=== PATIENT | female | born 1970 | race Caucasian/White ===

== ENCOUNTER 2025-01-30 03:54 | Emergency (ER) | payer MEDICAID, SELFPAY ==
[2025-01-30 03:57] VITALS: BP 159/92; PULSE 85; RESP 18; TEMP 36.9; O2SAT 99
[2025-01-30 03:58] VITALS: BMI 22.6
--- NOTE | 2025-01-30 04:03 | PD.EDRME ---
Rapid Medical Screening Exam RME Arrival date/time: 01/30/25 03:54 Chief Complaint: Abdominal Pain Vital signs: Vital Signs Temperature 98.4 F 01/30/25 03:57 Pulse Rate 85 01/30/25 03:57 Respiratory Rate 18 01/30/25 03:57 Blood Pressure 159/92 H 01/30/25 03:57 Pulse Oximetry (%) 99 01/30/25 03:57 Oxygen Delivery Method Room Air 01/30/25 03:57 Vital signs reviewed by provider: Yes RME Narrative: 54-year-old female with chronic abdominal pain presenting to the emergency department by ambulance with bilateral upper and lower abdominal pain since 5 PM. There is no radiation. There is associated nausea. No chest pain or shortness of breath. Exam: Lungs are clear bilaterally. Abdomen soft nontender nondistended, no rebound. No Weir sign. No CVA tenderness. Patient is awake alert, awake, not diaphoretic. Clinical Impression: Bilateral upper abdominal pain. Labs, EKG chest x-ray, will be ordered. A emergency department provider will see this patient and do a final disposition.
--- NOTE | 2025-01-30 04:05 | EKG_ITS ---
[facility] Test Date: 2025-01-30 Pat Name: FER VARELA Department: Room: - Gender: Female [employer]: : 1970 Requested By: Aissatou Nguyen Order Number: [id number] Reading MD: Aissatou Nguyen Measurements Intervals [place] Rate: 80 P: 52 CA: 141 QRS: 64 QRSD: 102 T: 66 QT: 404 QTc: 469 Interpretive Statements SINUS RHYTHM POSSIBLE LEFT ATRIAL ENLARGEMENT [-0.1mV P-WAVE IN V1/V2] MODERATE ST DEPRESSION [0.05+ mV ST DEPRESSION] No previous ECG available for comparison /[id number]/[email or web address]/[id number].pdf
[2025-01-30] MEDS: ONDANSETRON ODT 4 MG TABRAP PO (04:11)
[2025-01-30 04:50] LABS: Basophils # (Auto) 0.0 Thou/mm3 (0.0-0.2); Basophils % (Auto) 0 % (0-2.5); Eosinophils # (Auto) 0.2 Thou/mm3 (0.0-0.5); Eosinophils % (Auto) 2 % (0-10); Hematocrit 41.1 % (36.0-46.0); Hemoglobin 14.0 g/dL (12.0-16.0); Immature Granulocytes Auto 0.02 Thou/mm3 (0.00-0.00); Lymphocytes # (Auto) 1.5 Thou/mm3 (1.0-4.8); Lymphocytes % (Auto) 18 % (10-50); Mean Corpuscular HGB Conc 34.1 g/dl (31.0-37.0); Mean Corpuscular Hemoglobin 31.7 pg (25.0-35.0); Mean Corpuscular Volume 93 fL (80-100); Monocytes # (Auto) 0.6 Thou/mm3 (0.0-0.8); Monocytes % (Auto) 8 % (0-12); Neutrophils # (Auto) 5.8 Thou/mm3 (1.8-7.7); Neutrophils % (Auto) 72 % (37-80); Nucleated Red Blood Cell # 0.00 Thou/mm3 (0.00-0.00); Nucleated Red Blood Cell % 0 /100 WBC (0); Platelet Count 288 Thou/mm3 (140-440); RDW Standard Deviation 40.2 fL (36.4-46.3); Red Blood Count 4.42 Miln/mm3 (4.00-5.20); White Blood Count 8.1 Thou/mm3 (3.6-11.0)
[2025-01-30 05:11] LABS: Troponin I < 0.020 ng/mL (0.0-0.045)
[2025-01-30 05:45] LABS: Alanine Aminotransferase 11 U/L (10-49); Albumin, Serum 4.4 gm/dL (3.5-5.0); Alkaline Phosphatase 119 U/L (46-116); Anion Gap 8 (7-16); Aspartate Amino Transferase 18 U/L (0-34); BUN/Creatinine Ratio 10 Ratio (12-20); Bilirubin,Total 0.4 mg/dL (0.3-1.2); Blood Urea Nitrogen 8 mg/dL (9-23); Calcium 9.1 mg/dL (8.3-10.6); Calcium (Corrected) 9.1 mg/dL (8.5-10.1); Carbon Dioxide 27.4 mMol/L (20.0-31.0); Chloride 105 mMol/L (98-107); Creatinine (Component) 0.8 mg/dL (0.6-1.3); Estimated Creatinine Clearance 73.5 mL/min (>60); Glucose 109 mg/dL (74-106); Lipase 31 U/L (12-53); Osmolality,Calculated 278 (275-295); Potassium 4.0 mMol/L (3.4-5.1); Sodium 140 mMol/L (136-145); eGFR > 60 See Note
--- NOTE | 2025-01-30 08:49 | XR_ITS ---
EXAMINATION: Abdominal series 3 views including upright PA chest TECHNIQUE: Upright PA chest, AP upright AP supine abdomen total 3 views Date and time: January 30, 2025, 0909 hours INDICATIONS: Abdominal pain today FINDINGS: Normal heart size Lungs are clear. Moderate stool throughout the colon No obstruction No free air IMPRESSION: Nonobstructive bowel gas pattern
[2025-01-30] MEDS: KETOROLAC INJ 30 MG/ML VIAL IM (09:04)
[2025-01-30 09:21] LABS: Collection Type, Urine Clean Catch
[2025-01-30 09:41] LABS: Bacteria,Urine Rare; Bilirubin,Urine Negative (Negative); Blood,Urine Negative (Negative); Clarity,Urine Turbid (Clear/Hazy); Color,Urine Lt-Yellow (Lt Yel-Yel); Glucose, Urine Negative (Negative); Ketones,Urine 1+ (Negative); Leukocyte Esterase,Urine Negative (Negative); Nitrite,Urine Positive (Negative); PH,Urine 7.0 (5.0-7.0); Protein,Urine Negative (Neg - Trace); RBC,Urine 1 /hpf (0-3); Specific Gravity,Urine 1.020 (1.001-1.035); Squamous Epithelial Cell,Urine < 1 /hpf (0-5); Urobilinogen,Urine Negative mg/dL (0.0-1.0); WBC,Urine 1 /hpf (0-5)
[2025-01-30 09:50] LABS: Culture Indicated,Urine Yes
[2025-01-30 10:04] VITALS: BP 139/94; PULSE 80; RESP 16; TEMP 36.9; O2SAT 100
--- NOTE | 2025-01-30 10:52 | EDNOTE_ITS ---
ED Abdominal Pain RME/HPI General Chief Complaint: Abdominal Pain Stated complaint: ABD PAIN Time seen by provider: 01/30/25 04:04 Arrival date/time: 01/30/25 03:54 RME / HPI RME / HPI narrative: 54-year-old female with chronic abdominal pain presenting to the emergency department by ambulance with bilateral upper and lower abdominal pain since 5 PM. There is no radiation. There is associated nausea. No chest pain or shortness of breath. DR. MEI MAIN ED EVALUATION 54 year old female with no stated medical history presents to the ED for evaluation of abdominal pain beginning yesterday evening (5-6pm) and remaining constant since. Described as aching in sensation that is located most to the right upper and epigastric regions with radiation around to her back, rating as moderate. Accompanied by nausea and vomiting. States the pain began before eating dinner and has not had anything to eat since yesterday afternoon. Denies fevers, chills, sweats. Denies chest pain, cough, shortness of breath. Denies diarrhea, constipation, or urinary symptoms. Patient mentioned she has experienced similar abdominal pain intermittently over several months and has yet to consult with PCP. Exam: Lungs are clear bilaterally. Abdomen soft nontender nondistended, no rebound. No Weir sign. No CVA tenderness. Patient is awake alert, awake, not diaphoretic. Impression: Bilateral upper abdominal pain. Labs, EKG chest x-ray, will be ordered. A emergency department provider will see this patient and do a final disposition. Related Data Allergies Allergy/AdvReac Type Severity Reaction Status Date / Time No Known Allergies Allergy Verified 01/30/25 04:01 Review of Systems Review of Systems Systems Reviewed: All systems reviewed, normal except as documented Past Medical History Past Medical History CARDIAC: Negative Congestive Heart Failure RESPIRATORY: Negative Chronic Obstructive Pulmonary Disease (COPD) GENITOURINARY: Negative Renal Disease ENDOCRINE: Negative Diabetes Mellitus Type 1 or Diabetes Mellitus Type 2 Social History SMOKING STATUS: Former smoker ED Exam Narrative Physical exam: GENERAL APPEARANCE: alert and oriented x 4, well-developed, well-nourished, no acute distress HEENT: Normocephalic, atraumatic; pupils equal, round, reactive to light; EOMI; mucous membranes pink, moist; oropharynx clear NECK: Supple LUNGS: CTABL; no wheezes, no rales, no rhonchi HEART: Regular rate, regular rhythm; normal S1, S2; no murmurs ABDOMEN: moderately distended; active BS; soft, no tenderness, no guarding, no rebound; no masses, no organomegaly, no hernia BACK: no CVA tenderness EXTREMITIES: atraumatic; no edema NEUROLOGIC: awake; alert and oriented x4; cranial nerves II-XII grossly intact; no focal sensory or motor deficits PSYCHIATRIC: appropriate mood and affect SKIN: warm, dry, normal color; no rashes Course Quality Measures none Orders Category Date Time Status CT Screening NOW Care 01/30/25 12:11 Active EKG (ED ONLY) *Do not use* NOW Care 01/30/25 04:[address] abdomen pelvis w con Stat Exams 01/30/25 12:11 Completed EKG (ED Only) Stat Exams 01/30/25 04:05 Draft US abdomen limited Stat Exams 01/30/25 13:54 Completed XR abdomen series w chest 1V Stat Exams 01/30/25 08:49 Completed CBC Stat Lab 01/30/25 04:20 Completed CMP [Comprehensive Metabolic Panel] Stat Lab 01/30/25 04:20 Completed Lipase Stat Lab 01/30/25 04:20 Completed Troponin I Stat Lab 01/30/25 04:20 Completed UA, C/S IF [Urinalysis, C/S if Indicated] Stat Lab 01/30/25 09:07 Completed Urine Culture Stat Lab 01/30/25 09:07 Received Ketorolac Inj [Toradol Inj] Med 01/30/25 08:49 Discontinued 30 mg IM X1 ONE Morphine* Inj Med 01/30/25 12:11 Discontinued 4 mg IVP X1 ONE Ondansetron Inj [Zofran Inj] Med 01/30/25 12:11 Discontinued 4 mg IVP X1 ONE Ondansetron Odt [Zofran Odt] Med 01/30/25 04:05 Discontinued 4 mg PO X1 ONE Sodium Chloride 0.9% 1000 ml [Ns] 1,000 ml Med 01/30/25 12:11 Discontinued IV 999 mls/hr Sodium Chloride 0.9% 1000 ml [Ns] 1,000 ml Med 01/30/25 13:11 Discontinued IV 999 mls/hr Vital Signs Vital signs: Vital Signs Temperature 98.4 F 01/30/25 03:57 Pulse Rate 85 01/30/25 03:57 Respiratory Rate 18 01/30/25 03:57 Blood Pressure 159/92 H 01/30/25 03:57 Pulse Oximetry (%) 99 01/30/25 03:57 Oxygen Delivery Method Room Air 01/30/25 03:57 Pulse ox is 99% on room air which is adequate. Abdominal Pain MDM MDM Narrative MDM Narrative:: Catherine Agosto am scribing for and in the presence of Dr. Mei. Patient remains clinically stable throughout the emergency department visit. We reviewed all the results, analysis, and treatment plans. Patient is amenable to discharge. Strict return precautions were outlined. Patient data External records reviewed:: None (No previous records for review ) Clinical information provided by:: patient Social determinants that could affect healthcare access:: none Patient has the following chronic illnesses:: None reported How is presenting disease/condition affected by chronic disease/condition?: no chronic disease Evaluation data The following diagnostics were reviewed and interpreted by me:: lab results, radiology exam(s) and EKG tracing(s) (EKG @ 04:33AM, normal sinus rhythm, rate 80, no STEMI. ) Lab and/or radiology exams considered but not ordered:: None Interpretation Summary: Ordering Physician: Anne Mei MD Date of Service: 01/30/25 Procedure(s): XR abdomen series w chest 1V Accession Number(s): [id number] cc: Walt Duque MD; NO PRIMARY/FAMILY,PHYSICIAN; Anne Mei MD~ EXAMINATION: Abdominal series 3 views including upright PA chest TECHNIQUE: Upright PA chest, AP upright AP supine abdomen total 3 views Date and time: January 30, 2025, 0909 hours INDICATIONS: Abdominal pain today FINDINGS: Normal heart size Lungs are clear. Moderate stool throughout the colon No obstruction No free air IMPRESSION: Nonobstructive bowel gas pattern Dictated By: Walt Duque MD Signed By: <Electronically signed by Walt Duque MD in OV> 01/30/25 0932 Ordering Physician: Anne Mei MD Date of Service: 01/30/25 Procedure(s): US abdomen limited Accession Number(s): [id number] cc: Walt Duque MD; NO PRIMARY/FAMILY,PHYSICIAN; Anne Mei MD~ Examination: Abdomen sonogram, Limited Date and time of exam: January 30, 2025, 1440 hours INDICATIONS: Onset right upper abdominal pain today Technique: Real-time cooper scale transabdominal sonographic images of the upper abdomen obtained. Findings: Multiple gallstones Gallbladder wall thickening 0.7 cm Common bile duct 0.6 cm Pancreatic head 2.6 cm Liver 12.9 cm no liver lesions Normal hepatopetal portal venous Patent IVC IMPRESSION: Cholelithiasis, thickened gallbladder wall, consider HIDA scan or MRCP follow-up to confirm cholecystitis Dictated By: Walt Duque MD Signed By: <Electronically signed by Walt Duque MD in OV> 01/30/25 1517 Ordering Physician: Anne eMi MD Date of Service: 01/30/25 Procedure(s): CT abdomen pelvis w con Accession Number(s): [id number] cc: Walt Duque MD; NO PRIMARY/FAMILY,PHYSICIAN; Anne Mei MD~ Examination: CT abdomen with intravenous contrast CT pelvis with intravenous contrast 2-D coronal reconstructions 2-D sagittal reconstructions Date and time of exam: January 30, 2025, 1324 hours INDICATIONS: Onset right lower abdominal pain today. CTDI: vol (mGy) 7.05 DLP: (mGycm) 395 Technique: Multiple axial sections of the abdomen and pelvis have been obtained. 64 slice high-resolution scanner used. 3 mm axial sections have been obtained, post intravenous injection 60 cc [id number] 2-D sagittal, coronal reconstructions obtained. Low dose protocols were performed. One or more of the following dose reduction techniques were used; automated exposure control, adjustment of the mA and/or KV according to patient size, use of iterative reconstruction technique. Findings: No focal liver or splenic lesions Gallstones Gallbladder wall appears thickened and edematous No common hepatic or common bile duct stones No pancreatic mass Normal adrenal glands Significant right renal scarring, no hydronephrosis or ureteral calculi Aorta normal size No bowel obstruction Normal appendix No diverticulitis Atrophic uterus Urinary bladder intact Significant osteopenia IMPRESSION: Recommend hepatobiliary sonography to confirm acute calculus cholecystitis Dictated By: Walt Duque MD Signed By: <Electronically signed by Walt Duque MD in OV> 01/30/25 7640 Medications / Prescriptions Medications or Prescriptions considered but not ordered:: none Medication administrations:: Medication Administration History Discontinued Medications Sodium Chloride (Ns) 1,000 mls @ 999 mls/hr IV .Q1H1M ONE Stop: 01/30/25 13:11 Last Infusion: 01/30/25 14:33 Dose: Infused Documented By: Admin: 01/30/25 13:00 Dose: 999 mls/hr Documented By: ALLIE Sodium Chloride (Ns) 1,000 mls @ 999 mls/hr IV .Q1H1M ONE Stop: 01/30/25 14:11 Last Infusion: 01/30/25 15:58 Dose: Infused Documented By: Admin: 01/30/25 14:33 Dose: 999 mls/hr Documented By: DALoren Ketorolac Tromethamine (Ketorolac Inj 30 Mg/Ml Vial) 30 mg IM X1 ONE Stop: 01/30/25 08:50 Last Admin: 01/30/25 09:04 Dose: 30 mg Documented By: VG Morphine Sulfate (Morphine Sulf Inj 4 Mg/Ml Vial) 4 mg IVP X1 ONE Stop: 01/30/25 12:12 Last Admin: 01/30/25 12:59 Dose: 4 mg Documented By: DALoren Ondansetron HCl (Ondansetron Odt 4 Mg Tabrap) 4 mg PO X1 ONE; Protocol Stop: 01/30/25 04:06 Last Admin: 01/30/25 04:11 Dose: 4 mg Documented By: CVL Ondansetron HCl (Ondansetron Inj 2 Mg/Ml Inj 2 Ml) 4 mg IVP X1 ONE Stop: 01/30/25 12:12 Last Admin: 01/30/25 13:00 Dose: 4 mg Documented By: ALLIE See above Consultations Consultation(s) initiated? (list below): No Diagnosis Differential diagnosis abdominal pain: abdominal pain, calculus of kidney, diverticulitis, gastroenteritis and other (choelithiasis) Most likely diagnosis given after review of the tests above:: Biliary colic Gallstones Admission Indicated Admission indicated?: not indicated Explain why admission is indicated or not indicated:: With no condition needing emergent intervention, there was no indication for admission. Admission Request Was there a request for admission?: No Disposition Plan Disposition Plan: Discharge Discharge Attestation Discharge Attestation: The patient and all family members were given an opportunity to ask questions and understood the discharge instructions. Discharge instructions specifically effects, indications for sooner follow up or return to the emergency department, and the expected course of current diagnosis. Patient condition: Stable Discharge Plan Plan Patient Disposition: HOME (Self Care) Prescriptions/Referrals Referrals: No Primary/Family,Physician [Primary Care Provider] - In 1 week Problem List Clinical Impression: Biliary colic, Gallstones Patient/Caregiver Discharge Instructions Education Materials: What Are Gallstones, Treating Gallstones, ED Gallstones with Biliary Colic Print Language: Indonesian Stand Alone Forms: Crystal Award Info., Patient Portal Info Letter
--- NOTE | 2025-01-30 12:11 | XR_ITS ---
Examination: CT abdomen with intravenous contrast CT pelvis with intravenous contrast 2-D coronal reconstructions 2-D sagittal reconstructions Date and time of exam: January 30, 2025, 1324 hours INDICATIONS: Onset right lower abdominal pain today. CTDI: vol (mGy) 7.05 DLP: (mGycm) 395 Technique: Multiple axial sections of the abdomen and pelvis have been obtained. 64 slice high-resolution scanner used. 3 mm axial sections have been obtained, post intravenous injection 60 cc Isovue-[id number] 2-D sagittal, coronal reconstructions obtained. Low dose protocols were performed. One or more of the following dose reduction techniques were used; automated exposure control, adjustment of the mA and/or KV according to patient size, use of iterative reconstruction technique. Findings: No focal liver or splenic lesions Gallstones Gallbladder wall appears thickened and edematous No common hepatic or common bile duct stones No pancreatic mass Normal adrenal glands Significant right renal scarring, no hydronephrosis or ureteral calculi Aorta normal size No bowel obstruction Normal appendix No diverticulitis Atrophic uterus Urinary bladder intact Significant osteopenia IMPRESSION: Recommend hepatobiliary sonography to confirm acute calculus cholecystitis
[2025-01-30] MEDS: MORPHINE SULF INJ 4 MG/ML VIAL IVP (12:59)
[2025-01-30] MEDS: ONDANSETRON INJ 2 MG/ML INJ 2 ML 4 MG IVP (13:00)
[2025-01-30] MEDS: SODIUM CHLORIDE 0.9% 1000 ML 1,000 ML 999 ML IV ×2 (13:00→14:33)
[2025-01-30 13:01] LABS: Albumin/Globulin Ratio 1.3 (1.2-2.2); Globulin 3.4 gm/dL (2.3-3.5); Total Protein 7.8 gm/dL (5.7-8.2)
[2025-01-30 13:06] VITALS: BP 142/89; PULSE 76; RESP 18; O2SAT 99
--- NOTE | 2025-01-30 13:54 | XR_ITS ---
Examination: Abdomen sonogram, Limited Date and time of exam: January 30, 2025, 1440 hours INDICATIONS: Onset right upper abdominal pain today Technique: Real-time cooper scale transabdominal sonographic images of the upper abdomen obtained. Findings: Multiple gallstones Gallbladder wall thickening 0.7 cm Common bile duct 0.6 cm Pancreatic head 2.6 cm Liver 12.9 cm no liver lesions Normal hepatopetal portal venous Patent IVC IMPRESSION: Cholelithiasis, thickened gallbladder wall, consider HIDA scan or MRCP follow-up to confirm cholecystitis
--- NOTE | 2025-01-30 13:54 | PC.NURSE ---
pt back from ct scan tolerated well.
[2025-01-30 17:50] VITALS: BP 131/83; PULSE 79; RESP 18; TEMP 37.1; O2SAT 96
== END 2025-01-30 17:56 | disposition home or self-care (01) ==
PROVIDERS: Emergency Medicine; Emergency Provider Emergency Medicine
DX: K80.70 Calculus of gallbladder and bile duct without cholecystitis without obstruction (principal); R94.31 Abnormal electrocardiogram [ECG] [EKG]
CPT/HCPCS: 36415; 74022; 74177; 76705; 80053; 81001; 83690; 84484; 85025; 87077; 87086; 87186; 93005; 96361; 96372; 96374; 96375; 99284; A4649; J1885; J2270; J2405; J7030; Q0162; Q9967